=== PATIENT | male | born 1970 | race Caucasian/White ===

== ENCOUNTER 2023-02-09 12:48 | Outpatient (AMB) | payer BC, SELFPAY ==
--- NOTE | 2023-02-09 13:34 | AM.OFFWIN_ITS ---
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 Pt states it happened last night and he woke up swollen. Pt has swollen eyes and face. 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 Patient is complaining of swelling and itching in the face since yesterday. Incidentally he had a insect bite on the right foot a few days ago. No fevers or chills. No shortness of breath. No difficulty breathing. PFSH Social History Patient Tobacco Use Status: Never used Tobacco Physical Exam Vital Signs: Last Vital Signs Temp 98.1 F 02/09/23 13:40 Pulse 80 02/09/23 13:40 BP 140/84 H 02/09/23 13:40 Pulse Ox 98 02/09/23 13:40 Oxygen Delivery Method Room Air 02/09/23 13:40 Const General: cooperative and healthy appearing Nutritional Appearance: well nourished Orientation/consciousness: patient oriented x3 Limitations: no limitations HEENT Head: Yes normal to inspection Eyes General: appearance normal, both eyes and all related structures Neck Neck: Yes normal visual inspection Chest Chest palpation & inspection: normal palpation of entire chest wall Resp Effort & Inspection: normal respiratory effort Skin Other: Face: Erythematous rash on the forehead and periorbital swelling. Right foot: Dorsum of the foot: Slight swelling if no tenderness Neuro General: patient oriented x3 Assessment & Plan Assessment & Plan (1) Rash: Code(s): R21 - Rash and other nonspecific skin eruption Plan: Most likely an allergic reaction. If symptoms do not improve to follow-up here. Prednisone has been ordered. Medications: New prednisone 60 mg (3 x 20 mg) PO DAILY 9 tabs 0RF Coding Level of Care Code Est Pt Level 3 (07194) Diagnoses Rash R21
[2023-02-09 13:40] VITALS: BP 140/84; PULSE 80; TEMP 36.7; O2SAT 98
== END 2023-02-09 16:11 | disposition home or self-care (01) ==
PROVIDERS: Visit Provider Internal Medicine
DX: R21 Rash and other nonspecific skin eruption (principal)
CPT/HCPCS: 99213

== ENCOUNTER 2023-11-02 08:20 | Outpatient (REF) | payer BC, SELFPAY ==
[2023-11-02 14:24] LABS: MANUAL DIFF FLAG NO
[2023-11-02 14:39] LABS: Basophils Percent Auto 0.4 % (0-2); Eosinophils Absolute Auto 0.2 X10*3/uL (0.0-0.4); Eosinophils Percent Auto 3.3 % (0-4); Hematocrit 49.1 % (42.0-52.0); Hemoglobin 16.7 g/dl (14.0-18.0); Imm Gran Abs Auto 0.04 X10*3/uL (0.00-0.03); Imm Gran Pct Auto 0.6 % (0.0-0.4); Lymphocytes Percent Auto 41.3 % (20-40); Mean Corpuscular Hemoglobin 31.5 pg (27.0-33.0); Mean Corpuscular Volume 92.6 fL (80.0-98.0); Mean Platelet Volume 9.4 fL (9.4-12.4); Monocytes Absolute Auto 0.5 X10*3/uL (0.1-1.2); Monocytes Percent Auto 7.5 % (2-11); Neutrophils Absolute Auto 3.4 x10*3/uL (2.0-8.3); Neutrophils Percent Auto 46.9 % (45-73); Platelet Count 256 X10*3/uL (160-400); Red Cell Distribution Width 12.9 % (11.0-16.0); White Blood Count 7.2 X10*3/uL (4.8-10.8)
[2023-11-02 14:46] LABS: Estimated Average Glucose 103 mg/dL; Hemoglobin A1c % 5.2 % (<6.0)
[2023-11-02 14:50] LABS: Alanine Aminotransferase 38 U/L (0-40); Albumin Level 4.3 g/dL (3.5-5.0); Alkaline Phosphatase 88 U/L (39-117); Anion Gap 12 (12-20); Aspartate Amino Transferase 26 U/L (5-37); Bilirubin Total 0.4 mg/dL (0.0-1.0); Blood Urea Nitrogen 15 mg/dL (9-16); Calcium 9.5 mg/dL (8.4-10.2); Carbon Dioxide 25 mmol/L (22-29); Chloride 108 mmol/L (96-108); Cholesterol 267 mg/dL (<200); Estimated Glomerular Filt Rate > 60; Glucose Random 90 mg/dL (60-115); HDL Cholesterol 48 mg/dL (>40); LDL Cholesterol Calculated 176 mg/dL (<100); Potassium 4.2 mmol/L (3.3-5.1); Sodium 141 mmol/L (135-145); Triglycerides 218 mg/dL (<150)
[2023-11-02 15:07] LABS: Prostate Specific Antigen 0.49 ng/mL (<0.05-4.0); TSH reflex Free T4 3.29 uIU/mL (0.32-4.0)
[2023-11-03 04:23] LABS: ~HepC Num1 0.06 S/CO (0.00-0.79); ~Hepatitis C Antibody Nonreactive (Nonreactive)
[2023-11-05 17:53] LABS: HIV RNA PCR Qn Copies Not Detected Copies/mL; HIV RNA PCR Qn Log Copies Not Detected Log cps/mL
[2023-11-06 15:12] LABS: Testosterone, Free 101.8 pg/mL (35.0-155.0); Testosterone, Total 572 ng/dL (250-1100)
== END 2023-11-02 08:21 | disposition home or self-care (01) ==
LOC: HO.CHCLDS 08:20
PROVIDERS: Visit Provider Internal Medicine
DX: Z12.5 Encounter for screening for malignant neoplasm of prostate (principal); Z13.6 Encounter for screening for cardiovascular disorders; R53.83 Other fatigue
CPT/HCPCS: 36415; 80053; 80061; 83036; 84153; 84402; 84403; 84443; 85025; 86803; 87536; 87900